=== PATIENT | male | born 1950 | race Asian ===

== ENCOUNTER 2018-03-04 09:12 | Emergency (ER) | payer MEDICARE, OTHER, MEDICAID | END 2018-03-04 10:46 | disposition left against medical advice (07) | LOC: E/R 09:12 | DX: B02.9 Zoster without complications (principal); F17.210 Nicotine dependence, cigarettes, uncomplicated; Z79.82 Long term (current) use of aspirin | CPT/HCPCS: 99282 ==

== ENCOUNTER 2019-05-23 12:04 | Inpatient (IN) | payer OTHER ==
[2019-05-23] MEDS: SOD CHLORIDE 0.9% 500 ML IV (13:23)
[2019-05-23] MEDS: IBUPROFEN 600 MG TAB PO (16:07)
[2019-05-23] MEDS ORDERED: HYDROCODONE/APAP (5/325) TAB PO (16:30)
[2019-05-23] MEDS ORDERED: MAGNESIUM HYDROXIDE 30ML CUP PO (16:30)
[2019-05-23] MEDS ORDERED: ACETAMINOPHEN 325 MG TAB PO (16:30)
[2019-05-23] MEDS ORDERED: ONDANSETRON 4 MG INJ IV (16:30)
[2019-05-23] MEDS ORDERED: BISACODYL 10 MG SUPP PR (16:30)
[2019-05-23] MEDS ORDERED: DOCUSATE SODIUM 100 MG CAP PO (16:30)
[2019-05-23] MEDS ORDERED: morphine 2 MG INJ IV (16:30)
[2019-05-23] MEDS ORDERED: NACL 0.9% 3 ML SYG IV (16:30)
[2019-05-23] MEDS ORDERED: DEXTROSE 50% 50 ML SYRINGE IV ×2 (17:00)
[2019-05-23] MEDS ORDERED: GLUCAGON 1 MG INJ IM (17:00)
[2019-05-23] MEDS ORDERED: GLUCOSE GEL 15 GRAM TUBE BUCCAL (17:00)
[2019-05-23] MEDS ORDERED: GLUCOSE GEL 15 GRAM TUBE PO ×2 (17:00)
[2019-05-23] MEDS: INSULIN GLARGINE [LANTus] (100 UNITS/ML) SYG SC (20:00)
[2019-05-23] MEDS: INSULIN ASPART [NOVOLOG] 3 ML PEN SC ×2 (21:30→22:09)
[2019-05-23] MEDS: MYCOPHENOLATE 250 MG CAP PO (22:14)
[2019-05-23] MEDS: TACROLIMUS 0.5 MG CAP PO (22:14)
[2019-05-23] MEDS: MIRTAZAPINE 15 MG TAB PO (22:15)
[2019-05-23] MEDS: ATORVASTATIN 10 MG TAB PO (22:17)
[2019-05-24] MEDS: ACCU-CHEK XX ×2 (02:00→21:00)
[2019-05-24] MEDS: PANTOPRAZOLE 40 MG INJ IV (05:33)
[2019-05-24] MEDS: INSULIN ASPART [NOVOLOG] 3 ML PEN SC ×4 (07:50→21:00)
[2019-05-24] MEDS: SOD CHLORIDE 0.9% 100 ML (08:40)
[2019-05-24] MEDS: IODIXANOL LOCM 100 ML BTL (08:40)
[2019-05-24] MEDS: CINACALCET 30 MG TAB PO ×2 (09:00→13:00)
[2019-05-24] MEDS: MYCOPHENOLATE 250 MG CAP PO ×3 (09:00→21:02)
[2019-05-24] MEDS: SERTRALINE 50 MG TAB PO ×2 (09:00→12:58)
[2019-05-24] MEDS: CYANOCOBALAMIN 100 MCG TAB PO ×2 (09:00→12:58)
[2019-05-24] MEDS: OXYBUTYNIN (XL) 5 MG TAB PO ×2 (09:00→12:59)
[2019-05-24] MEDS: DONEPEZIL 10 MG TAB PO ×2 (09:00→12:58)
[2019-05-24] MEDS: CALCITRIOL 0.25 MCG CAP PO ×2 (09:00→12:58)
[2019-05-24] MEDS: TACROLIMUS 1 MG CAP PO ×2 (10:59→12:59)
[2019-05-24] MEDS: MAGNESIUM OXIDE 400 MG TAB PO (12:59)
[2019-05-24] MEDS: SOD CHLORIDE 0.9% 1,000 ML IV (16:23)
[2019-05-24] MEDS: ACETYLCYSTEINE 600 MG CAP PO ×2 (17:22→22:29)
[2019-05-24] MEDS: ATORVASTATIN 10 MG TAB PO (21:02)
[2019-05-24] MEDS: MIRTAZAPINE 15 MG TAB PO (21:02)
[2019-05-24] MEDS: TACROLIMUS 0.5 MG CAP PO (21:02)
[2019-05-24] MEDS: INSULIN GLARGINE [LANTus] (100 UNITS/ML) SYG SC (21:17)
[2019-05-25] MEDS: ACCU-CHEK XX ×5 (02:00→20:35)
[2019-05-25] MEDS: SOD CHLORIDE 0.9% 1,000 ML IV ×3 (04:20→20:37)
[2019-05-25] MEDS: PANTOPRAZOLE 40 MG INJ IV (05:46)
[2019-05-25] MEDS: INSULIN ASPART [NOVOLOG] 3 ML PEN SC ×7 (07:50→20:35)
[2019-05-25] MEDS: FENTAnyl 50 MCG/ML VIAL (08:49)
[2019-05-25] MEDS: MIDAZOLAM 1 MG/ML 2 ML INJ ×2 (08:49)
[2019-05-25] MEDS: CYANOCOBALAMIN 100 MCG TAB PO ×2 (09:00→09:20)
[2019-05-25] MEDS: LINAGLIPTIN 5 MG TABLET PO (09:19)
[2019-05-25] MEDS: SERTRALINE 50 MG TAB PO (09:20)
[2019-05-25] MEDS: CALCITRIOL 0.25 MCG CAP PO (09:20)
[2019-05-25] MEDS: CINACALCET 30 MG TAB PO (09:20)
[2019-05-25] MEDS: MYCOPHENOLATE 250 MG CAP PO ×2 (09:20→20:33)
[2019-05-25] MEDS: TACROLIMUS 1 MG CAP PO (09:20)
[2019-05-25] MEDS: OXYBUTYNIN (XL) 5 MG TAB PO (09:20)
[2019-05-25] MEDS: DONEPEZIL 10 MG TAB PO (09:21)
[2019-05-25] MEDS: POTASSIUM CHLORIDE (SR) 20 MEQ TAB PO ×2 (16:32→20:33)
[2019-05-25] MEDS: INSULIN GLARGINE [LANTus] (100 UNITS/ML) SYG SC (20:34)
[2019-05-25] MEDS: ATORVASTATIN 10 MG TAB PO (20:34)
[2019-05-25] MEDS: MIRTAZAPINE 15 MG TAB PO (20:34)
[2019-05-25] MEDS: TACROLIMUS 0.5 MG CAP PO (20:35)
[2019-05-26] MEDS: ACCU-CHEK XX ×6 (01:33→21:13)
[2019-05-26] MEDS: PANTOPRAZOLE 40 MG INJ IV (06:15)
[2019-05-26] MEDS: INSULIN ASPART [NOVOLOG] 3 ML PEN SC ×7 (09:00→21:00)
[2019-05-26] MEDS: TACROLIMUS 1 MG CAP PO (09:04)
[2019-05-26] MEDS: CALCITRIOL 0.25 MCG CAP PO (09:05)
[2019-05-26] MEDS: MYCOPHENOLATE 250 MG CAP PO ×2 (09:05→20:17)
[2019-05-26] MEDS: CYANOCOBALAMIN 100 MCG TAB PO (09:05)
[2019-05-26] MEDS: SERTRALINE 50 MG TAB PO (09:05)
[2019-05-26] MEDS: OXYBUTYNIN (XL) 5 MG TAB PO (09:06)
[2019-05-26] MEDS: HEPARIN 5,000 UNIT/1 ML VIAL SC ×2 (09:15→20:28)
[2019-05-26] MEDS: LINAGLIPTIN 5 MG TABLET PO (09:39)
[2019-05-26] MEDS: DONEPEZIL 10 MG TAB PO (09:39)
[2019-05-26] MEDS: TACROLIMUS 0.5 MG CAP PO (20:16)
[2019-05-26] MEDS: ATORVASTATIN 10 MG TAB PO (20:17)
[2019-05-26] MEDS: MIRTAZAPINE 15 MG TAB PO (20:18)
[2019-05-26] MEDS: INSULIN GLARGINE [LANTus] (100 UNITS/ML) SYG SC (20:28)
[2019-05-26] MEDS: SOD CHLORIDE 0.9% 1,000 ML IV (21:03)
[2019-05-27] MEDS: PANTOPRAZOLE 40 MG INJ IV (05:06)
[2019-05-27] MEDS: INSULIN ASPART [NOVOLOG] 3 ML PEN SC ×7 (07:50→21:00)
[2019-05-27] MEDS: ACCU-CHEK XX ×4 (08:40→21:23)
[2019-05-27] MEDS: DONEPEZIL 10 MG TAB PO (08:45)
[2019-05-27] MEDS: HEPARIN 5,000 UNIT/1 ML VIAL SC ×2 (08:45→21:15)
[2019-05-27] MEDS: LINAGLIPTIN 5 MG TABLET PO (08:45)
[2019-05-27] MEDS: MYCOPHENOLATE 250 MG CAP PO (08:45)
[2019-05-27] MEDS: SERTRALINE 50 MG TAB PO (08:45)
[2019-05-27] MEDS: CYANOCOBALAMIN 100 MCG TAB PO (08:46)
[2019-05-27] MEDS: CALCITRIOL 0.25 MCG CAP PO (08:46)
[2019-05-27] MEDS: TACROLIMUS 1 MG CAP PO (08:46)
[2019-05-27] MEDS: OXYBUTYNIN (XL) 5 MG TAB PO (08:46)
[2019-05-27] MEDS: INSULIN GLARGINE [LANTus] (100 UNITS/ML) SYG SC (21:14)
[2019-05-27] MEDS: ATORVASTATIN 10 MG TAB PO (21:18)
[2019-05-27] MEDS: MIRTAZAPINE 15 MG TAB PO (21:18)
[2019-05-27] MEDS: TACROLIMUS 0.5 MG CAP PO (21:18)
[2019-05-28] MEDS: ACCU-CHEK XX ×5 (02:00→20:24)
[2019-05-28] MEDS: PANTOPRAZOLE (EC) 40 MG TAB PO (06:34)
[2019-05-28] MEDS: INSULIN ASPART [NOVOLOG] 3 ML PEN SC ×7 (08:56→20:24)
[2019-05-28] MEDS: SERTRALINE 50 MG TAB PO (08:57)
[2019-05-28] MEDS: HEPARIN 5,000 UNIT/1 ML VIAL SC ×2 (08:57→20:24)
[2019-05-28] MEDS: OXYBUTYNIN (XL) 5 MG TAB PO (08:57)
[2019-05-28] MEDS: DONEPEZIL 10 MG TAB PO (08:59)
[2019-05-28] MEDS: TACROLIMUS 1 MG CAP PO (08:59)
[2019-05-28] MEDS: CALCITRIOL 0.25 MCG CAP PO (08:59)
[2019-05-28] MEDS: CYANOCOBALAMIN 100 MCG TAB PO (09:00)
[2019-05-28] MEDS: LINAGLIPTIN 5 MG TABLET PO (09:00)
[2019-05-28] MEDS: SOD CHLORIDE 0.9% 1,000 ML IV (19:10)
[2019-05-28] MEDS: MIRTAZAPINE 15 MG TAB PO (20:13)
[2019-05-28] MEDS: ATORVASTATIN 10 MG TAB PO (20:13)
[2019-05-28] MEDS: TACROLIMUS 0.5 MG CAP PO (20:17)
[2019-05-28] MEDS: INSULIN GLARGINE [LANTus] (100 UNITS/ML) SYG SC (20:23)
[2019-05-29] MEDS: ACCU-CHEK XX ×3 (02:00→12:21)
[2019-05-29] MEDS: PANTOPRAZOLE (EC) 40 MG TAB PO (06:03)
[2019-05-29] MEDS: INSULIN ASPART [NOVOLOG] 3 ML PEN SC ×4 (07:50→12:27)
[2019-05-29] MEDS: LINAGLIPTIN 5 MG TABLET PO (08:40)
[2019-05-29] MEDS: SERTRALINE 50 MG TAB PO (08:41)
[2019-05-29] MEDS: DONEPEZIL 10 MG TAB PO (08:41)
[2019-05-29] MEDS: TACROLIMUS 1 MG CAP PO (08:41)
[2019-05-29] MEDS: CALCITRIOL 0.25 MCG CAP PO (08:41)
[2019-05-29] MEDS: CYANOCOBALAMIN 100 MCG TAB PO (08:41)
[2019-05-29] MEDS: OXYBUTYNIN (XL) 5 MG TAB PO (08:42)
[2019-05-29] MEDS: HEPARIN 5,000 UNIT/1 ML VIAL SC (08:47)
[2019-05-29] MEDS: SOD CHLORIDE 0.9% 1,000 ML IV (13:52)
== END 2019-05-29 15:12 | disposition home or self-care (01) | DRG 436 ==
LOC: E/R 12:04 → MS1 15:39
PROC: 0FB13ZX Excision of Right Lobe Liver, Percutaneous Approach, Diagnostic (ICD-10-PCS; principal; 2019-05-24)
DX: C22.8 Malignant neoplasm of liver, primary, unspecified as to type (principal); N17.9 Acute kidney failure, unspecified; T86.19 Other complication of kidney transplant; B19.10 Unspecified viral hepatitis B without hepatic coma; N28.89 Other specified disorders of kidney and ureter; E83.42 Hypomagnesemia; I10 Essential (primary) hypertension; E11.9 Type 2 diabetes mellitus without complications; Z85.46 Personal history of malignant neoplasm of prostate; Z92.3 Personal history of irradiation; Z87.891 Personal history of nicotine dependence; E66.9 Obesity, unspecified; Z68.33 Body mass index [BMI] 33.0-33.9, adult; E78.2 Mixed hyperlipidemia; Z79.899 Other long term (current) drug therapy; F03.90 Unspecified dementia, unspecified severity, without behavioral disturbance, psychotic disturbance, mood disturbance, and anxiety; F32.9 Major depressive disorder, single episode, unspecified
CPT/HCPCS: 36415; 71045; 74160; 74176; 77012; 80048; 80053; 80061; 80197; 81003; 82105; 82378; 82784; 82962; 83036; 83615; 83690; 83735; 84100; 84155; 84165; 84436; 84443; 84479; 84484; 84560; 85025; 85610; 85730; 86301; 86320; 86704; 86706; 86803; 87086; 87340; 88307; 88313; 88341; 88342; 93005; 99285-25